=== PATIENT | male | born 1980 | race Caucasian/White ===

== ENCOUNTER 2023-09-19 20:00 | Emergency (ER) | payer SELFPAY ==
[~2023-09-19] VITALS: Ht 170.2 cm; Wt 65.0 kg
[2023-09-19] MEDS: IBUPROFEN 600MG TABLET PO ONE (11:24)
[2023-09-19 20:17] VITALS: BP 132/84; PULSE 84; RESP 16; TEMP 97.1; O2SAT 97
== END 2023-09-19 23:57 | disposition left against medical advice (07) ==
LOC: ER 20:00
DX: M79.671 Pain in right foot (principal)
CPT/HCPCS: 99283

== ENCOUNTER 2023-09-20 01:15 | Emergency (ER) | payer BC, MEDICAID ==
[~2023-09-20] VITALS: Ht 170.2 cm; Wt 78.0 kg
[2023-09-20 04:33] VITALS: BP 109/74; PULSE 68; RESP 18; TEMP 98.4; O2SAT 99
== END 2023-09-20 06:46 | disposition left against medical advice (07) ==
LOC: ER 02:29
DX: M79.673 Pain in unspecified foot (principal); Z53.21 Procedure and treatment not carried out due to patient leaving prior to being seen by health care provider